=== PATIENT | female | born 1975 | race Caucasian/White ===

== ENCOUNTER 2017-07-27 20:22 | Inpatient (IN) | payer OTHER ==
[~2017-07-27] VITALS: Ht 144.8 cm; Wt 49.4 kg
--- NOTE | ~2017-07-27 | EKG ---
[address] [address] ELECTROCARDIOGRAM REPORT Name: ULYSSES MARADIAGA Room #: 238-P ADM IN M.R.#: [id number] Admission: 07/27/17 Attend Phys: Justus Gracia MD Discharge: Date of : 75 Report #: [id number] THIS REPORT FOR: //name// [facility] ED Test Date: 2017-07-27 Test Time: 20:47:58 Pat Name: ULYSSES MARADIAGA Department: Room: 238 Gender: F Life Underwriter: hafsa : 1975 Requested By: Fox Figueroa Order Number: [id number] MD: Owen Murcia Measurements Intervals [place] Rate: 96 P: 39 SD: 140 QRS: 36 QRSD: 87 T: 36 QT: 341 QTc: 431 Interpretive Statements Sinus rhythm No previous ECG available for comparison Electronically Signed On 07-28-2017 9:24:35 [employer] by Owen Murcia [email or web address] <ELECTRONICALLY SIGNED> By: Owen Murcia MD 07/28/17 0924 2047 2047 Owen Murcia MD /EPI
[2017-07-27 20:25] VITALS: BP 147/93
[2017-07-27] MEDS ORDERED: PRISTIQ50 MG PO (20:38)
[2017-07-27] MEDS ORDERED: SEROQUEL 100 M100 M1 PO (20:39)
[2017-07-27] MEDS ORDERED: LITHIUM PO (20:40)
[2017-07-27 20:58] LABS: ABSOLUTE NEUTROPHILS 7.9 thou/uL (1.4-8.2); BASOPHILS 0.9 % (0.0-2.0); EOSINOPHILS 0.4 % (0.0-3.0); HEMATOCRIT 47.6 % (37.0-47.0); HEMOGLOBIN 16.3 gm/dL (12.0-15.0); LYMPHOCYTES 27.1 % (24.0-44.0); MCH 35.9 pg (26.0-34.0); MCHC 34.3 g/dL (28.0-37.0); MCV 104.8 fL (80.0-100.0); MONOCYTES 4.2 % (1.0-8.0); PLATELET COUNT 253 thou/uL (150-400); POLYS 67.4 % (36.0-66.0); RBC 4.54 mil/uL (4.20-5.00); RDW 13.5 % (10.5-14.5); WBC 11.8 thou/uL (4.0-11.0)
[2017-07-27 21:00] LABS: MANUAL DIFF NO
[2017-07-27 21:07] LABS: ANION GAP 11 mmol/L (7-16); BUN < 1 mg/dL (7-18); CALCIUM 8.2 mg/dL (8.5-10.1); CHLORIDE 107 mmol/L (98-107); CO2 24 mmol/L (21-32); CREATININE 0.6 mg/dL (0.6-1.0); GLUCOSE 130 mg/dL (74-106); POTASSIUM 3.5 mmol/L (3.5-5.1); SODIUM 142 mmol/L (136-145)
[2017-07-27 21:22] LABS: ALBUMIN 2.8 g/dL (3.4-5.0); ALKALINE PHOSPHATASE 170 U/L (46-116); SALICYLATE 4.6 mg/dL (2.8-20.0); SGOT 49 U/L (15-37); SGPT 33 U/L (30-65); TOTAL BILIRUBIN 0.3 mg/dL (<0.1-1.0); TOTAL PROTEIN 6.4 g/dL (6.4-8.2)
[2017-07-27 21:23] LABS: URINE BILIRUBIN NEGATIVE (Negative); URINE BLOOD 3+ (Negative); URINE GLUCOSE-RANDOM* NEGATIVE (Negative); URINE KETONES NEGATIVE (Negative); URINE LEUKOCYTES-REFLEX NEGATIVE (Negative); URINE PROTEIN (DIPSTICK) NEGATIVE (Negative); URINE SPECIFIC GRAVITY <= 1.005 (1.005-1.035); URINE UROBILINOGEN 0.2 E.U./dl (0.2-1.0)
[2017-07-27 21:24] LABS: ACETAMINOPHEN < 2 ug/mL (10-30)
[2017-07-27 21:28] LABS: URINE COLOR STRAW
[2017-07-27 21:29] LABS: AMP/METHAMP Negative (Negative); BARBITURATES Negative (Negative); BENZODIAZEPINES Negative (Negative); COCAINE Negative (Negative); METHADONE Negative (Negative); OPIATES Negative (Negative); PCP Negative (Negative)
[2017-07-27 21:39] LABS: CASTS None Seen /LPF (None Seen); SQUAMOUS 4-10 Moderate /LPF (0-3)
[2017-07-27 21:40] LABS: CRYSTALS None Seen /LPF (None Seen); URINE RBC 0-2 Rare /HPF (0-2); URINE WBC-REFLEX 0-5 Rare /HPF (0-5)
[2017-07-28] VITALS (23 sets, daily range): BP systolic 106–147; BP diastolic 69–105
[2017-07-28 00:50] LABS: PHOSPHORUS 3.2 mg/dL (2.5-4.9)
[2017-07-28 01:17] LABS: FOLIC ACID 4.9 ng/mL (8.6-58.9)
[2017-07-28 03:47] LABS: HEMATOCRIT 41.8 % (37.0-47.0); MCH 35.7 pg (26.0-34.0); MCHC 33.9 g/dL (28.0-37.0); MCV 105.4 fL (80.0-100.0); RBC 3.97 mil/uL (4.20-5.00); RDW 13.4 % (10.5-14.5); WBC 9.3 thou/uL (4.0-11.0)
[2017-07-28 03:51] LABS: HEMOGLOBIN 14.2 gm/dL (12.0-15.0)
[2017-07-28 03:57] LABS: ALBUMIN 2.2 g/dL (3.4-5.0); CALCIUM 6.9 mg/dL (8.5-10.1); CREATININE 0.6 mg/dL (0.6-1.0); POTASSIUM 3.8 mmol/L (3.5-5.1); TOTAL BILIRUBIN 0.2 mg/dL (<0.1-1.0); TOTAL PROTEIN 5.2 g/dL (6.4-8.2)
[2017-07-29] VITALS (10 sets, daily range): BP systolic 104–130; BP diastolic 71–94
[2017-07-29 04:03] LABS: CALCIUM 7.5 mg/dL (8.5-10.1); CREATININE 0.6 mg/dL (0.6-1.0)
[2017-07-29 04:08] LABS: POTASSIUM 2.9 mmol/L (3.5-5.1)
== END 2017-07-29 15:19 | DRG 917 ==
LOC: ER 20:22 → ICU 21:58 → EROBS 21:58 → ICU 07-28 00:17
PROVIDERS: Emergency Medicine; Internal Medicine Endocrinology, Diabetes & Metabolism; Nurse Practitioner Family
DX: T43.591A Poisoning by other antipsychotics and neuroleptics, accidental (unintentional), initial encounter (principal); E43 Unspecified severe protein-calorie malnutrition; F17.210 Nicotine dependence, cigarettes, uncomplicated; F41.9 Anxiety disorder, unspecified; F31.9 Bipolar disorder, unspecified; F15.10 Other stimulant abuse, uncomplicated; R56.9 Unspecified convulsions; F10.229 Alcohol dependence with intoxication, unspecified; Z68.23 Body mass index [BMI] 23.0-23.9, adult; Z87.820 Personal history of traumatic brain injury; Y92.89 Other specified places as the place of occurrence of the external cause; Z28.21 Immunization not carried out because of patient refusal
CPT/HCPCS: 10078

== ENCOUNTER 2017-10-17 01:51 | Inpatient (IN) | payer OTHER ==
[2017-10-17] VITALS (16 sets, daily range): BP systolic 96–138; BP diastolic 65–89
[~2017-10-17] VITALS: Ht 149.9 cm; Wt 54.9 kg
--- NOTE | ~2017-10-17 | EKG ---
[address] [place] [address] ELECTROCARDIOGRAM REPORT Name: ULYSSES MARADIAGA Room #: 216-P ADM IN M.R.#: [id number] Admission: 10/17/17 Attend Phys: Marv Culver MD Discharge: Date of : 75 Report #: [id number] THIS REPORT FOR: //name// [facility] ED Test Date: 2017-10-17 Test Time: 02:47:30 Pat Name: ULYSSES MARADIAGA Department: Room: 216 Gender: F Scout Sniper: nino : 1975 Requested By: Ashutosh Reynaga Order Number: [id number] MD: Francois Arevalo Measurements Intervals [place] Rate: 128 P: 37 MI: 123 QRS: 27 QRSD: 67 T: 29 QT: 294 QTc: 429 Interpretive Statements Sinus tachycardia Otherwise no significant abnormality Compared to ECG 07/27/2017 20:47:58 Heart rate has increased Electronically Signed On 10-19-2017 13:31:50 CDT by Francois Arevalo [email or web address] <ELECTRONICALLY SIGNED> By: Francois Arevalo MD, [facility] 10/19/17 1331 0247 0247 Francois Arevalo MD, [facility] /EPI
--- NOTE | ~2017-10-17 | EKG ---
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 : 1975 Requested By: Marv Culver Order Number: [id number] MD: Francois Arevalo Measurements Intervals [place] Rate: 79 P: 36 VT: 141 QRS: 31 QRSD: 78 T: 28 QT: 377 QTc: 433 Interpretive Statements Sinus rhythm Poor R wave progression Compared to ECG 07/27/2017 20:47:58 No significant change was found Electronically Signed On 10-19-2017 13:37:58 CDT by Francois Arevalo [email or web address] <ELECTRONICALLY SIGNED> By: Francois Arevalo MD, [facility] 10/19/17 1337 26 26 Francois Arevalo MD, [facility] /EPI
[~2017-10-17 01:51] MED LIST: LITHIUM PO; PRISTIQ50 MG PO; SEROQUEL 100 M100 M1 PO
[2017-10-17 02:16] LABS: HEMATOCRIT 45.1 % (37.0-47.0); HEMOGLOBIN 15.4 gm/dL (12.0-15.0); MCH 33.6 pg (26.0-34.0); MCHC 34.1 g/dL (28.0-37.0); MCV 98.3 fL (80.0-100.0); RBC 4.58 mil/uL (4.20-5.00); RDW 14.6 % (10.5-14.5)
[2017-10-17 02:26] LABS: ANION GAP 18 mmol/L (7-16); BUN 3 mg/dL (7-18); CALCIUM 8.5 mg/dL (8.5-10.1); CHLORIDE 104 mmol/L (98-107); CO2 19 mmol/L (21-32); CREATININE 0.6 mg/dL (0.6-1.0); GLUCOSE 136 mg/dL (74-106); POTASSIUM 3.3 mmol/L (3.5-5.1); SODIUM 141 mmol/L (136-145)
[2017-10-17 02:31] LABS: SALICYLATE 4.6 mg/dL (2.8-20.0)
[2017-10-17 03:01] LABS: URINE BILIRUBIN NEGATIVE (Negative); URINE BLOOD NEGATIVE (Negative); URINE CLARITY CLEAR; URINE COLOR YELLOW; URINE GLUCOSE-RANDOM* NEGATIVE (Negative); URINE KETONES NEGATIVE (Negative); URINE LEUKOCYTES-REFLEX NEGATIVE (Negative); URINE NITRITE-REFLEX NEGATIVE (Negative); URINE PROTEIN (DIPSTICK) NEGATIVE (Negative); URINE SPECIFIC GRAVITY 1.025 (1.005-1.035); URINE UROBILINOGEN 0.2 E.U./dl (0.2-1.0)
[2017-10-17 03:06] LABS: AMP/METHAMP Negative (Negative); BARBITURATES Negative (Negative); BENZODIAZEPINES Negative (Negative); COCAINE Negative (Negative); METHADONE Negative (Negative); OPIATES Negative (Negative); PCP Negative (Negative)
[2017-10-17 16:23] LABS: CALCIUM 8.1 mg/dL (8.5-10.1); CREATININE 0.6 mg/dL (0.6-1.0); POTASSIUM 4.4 mmol/L (3.5-5.1)
[2017-10-18] VITALS (29 sets, daily range): BP systolic 117–160; BP diastolic 72–110
[2017-10-18 04:38] LABS: ABSOLUTE NEUTROPHILS 5.3 thou/uL (1.4-8.2); BASOPHILS 0.8 % (0.0-2.0); EOSINOPHILS 2.9 % (0.0-3.0); HEMATOCRIT 41.6 % (37.0-47.0); HEMOGLOBIN 14.1 gm/dL (12.0-15.0); LYMPHOCYTES 30.8 % (24.0-44.0); MCH 33.4 pg (26.0-34.0); MCHC 33.8 g/dL (28.0-37.0); MCV 98.7 fL (80.0-100.0); MONOCYTES 6.1 % (1.0-8.0); PLATELET COUNT 224 thou/uL (150-400); POLYS 59.4 % (36.0-66.0); RBC 4.22 mil/uL (4.20-5.00); RDW 14.4 % (10.5-14.5); WBC 8.9 thou/uL (4.0-11.0)
[2017-10-18 04:59] LABS: CALCIUM 8.4 mg/dL (8.5-10.1); CREATININE 0.5 mg/dL (0.6-1.0); MAGNESIUM 1.8 mg/dL (1.8-2.4)
[2017-10-19 00:20] VITALS: BP 141/91
[2017-10-19 05:05] VITALS: BP 136/88
[2017-10-19 08:23] VITALS: BP 135/87
[2017-10-19 15:08] VITALS: BP 135/87
[2017-10-19 15:33] VITALS: BP 118/88
[2017-10-19 19:00] VITALS: BP 140/94
[2017-10-20 07:17] VITALS: BP 133/90
[2017-10-20] MEDS ORDERED: NICOTINE TRANSD21 M1 TRANSDERM (10:40)
[2017-10-20] MEDS ORDERED: SEROQUEL 100 M100 MG PO (10:40)
[2017-10-22 22:06] LABS: TRICYCLIC (TCA) CONFIRMATION Positive ng/mL (Cutoff=100)
== END 2017-10-20 14:55 | DRG 885 ==
LOC: ER 01:51 → ICU 03:04 → EROBS 03:04 → ICU 03:24 → 2N 10-18 23:19
PROVIDERS: Emergency Medicine; Nurse Practitioner
DX: F31.9 Bipolar disorder, unspecified (principal); R45.851 Suicidal ideations; F41.9 Anxiety disorder, unspecified; F17.210 Nicotine dependence, cigarettes, uncomplicated; F10.129 Alcohol abuse with intoxication, unspecified; F12.90 Cannabis use, unspecified, uncomplicated; E87.6 Hypokalemia; Z79.899 Other long term (current) drug therapy; Z60.2 Problems related to living alone; Z28.21 Immunization not carried out because of patient refusal; Z87.820 Personal history of traumatic brain injury
CPT/HCPCS: 10078; 10081